=== PATIENT | male | born 1960 | race Caucasian/White ===

== ENCOUNTER → 2018-03-13 10:53 | Outpatient (CLI) | payer OTHER, MEDICAID, SELFPAY ==
[2018-03-13 12:07] LABS: BUN Creatinine Ratio 21.1 (6-22); Calcium 10.2 mg/dL (8.4-10.2); Estimated Glomerular Filt Rate > 60.0 mL/min (>60); Glucose 237 mg/dL (70-100); HEMOLYSIS < 15 (0-50); Potassium 4.6 mmol/L (3.4-5.1); Sodium 142 mmol/L (137-145)
== END ==
PROVIDERS: PCP Family Medicine; Visit Provider Nurse Practitioner
DX: I48.91 Unspecified atrial fibrillation (principal); I48.92 Unspecified atrial flutter; I42.9 Cardiomyopathy, unspecified; I50.22 Chronic systolic (congestive) heart failure; E66.8 Other obesity; I25.10 Atherosclerotic heart disease of native coronary artery without angina pectoris; I11.0 Hypertensive heart disease with heart failure
CPT/HCPCS: 36415; 80048; 83880

== ENCOUNTER → 2018-05-27 13:02 | Outpatient (CLI) | payer OTHER, MEDICAID, SELFPAY ==
[2018-05-27 15:00] LABS: Hemoglobin A1C% w Est Avg Glu 9.4 % (4.0-6.0)
[2018-05-27 15:29] LABS: Digoxin 0.7 ng/mL (0.8-2.0)
== END ==
PROVIDERS: PCP Family Medicine; Visit Provider Family Medicine
DX: E11.9 Type 2 diabetes mellitus without complications (principal); Z79.899 Other long term (current) drug therapy
CPT/HCPCS: 36415; 80162; 83036

== ENCOUNTER → 2018-07-11 10:00 | Outpatient (CLI) | payer OTHER, MEDICAID, SELFPAY ==
[2018-07-12 17:29] LABS: Creatinine Urine Random 10.5 mg/dL
[2018-07-12 17:31] LABS: Microalbumi Creatinin Ratio Ur 85.7 ug/mg CR (<30); Microalbumin Urine Random 0.9 mg/dL (0-1.6)
== END ==
PROVIDERS: Student in an Organized Health Care Education/Training Program; PCP Family Medicine; Visit Provider Family Medicine
DX: E11.9 Type 2 diabetes mellitus without complications (principal)
CPT/HCPCS: 82043; 82570